=== PATIENT | female | born 1970 | race American Indian/Alaskan Native ===

== ENCOUNTER 2017-12-09 09:23 | Emergency (ER) | payer OTHER ==
[2017-12-09 09:30] VITALS: BP 120/79; PULSE 76; RESP 18; TEMP 98.6; O2SAT 100
--- NOTE | 2017-12-09 10:26 | C.PDOC ---
History Of Present Illness Michelle Heath is a 47 year old female, with a past medical history of chronic ear infections, who presents to the emergency department complaining of cough and subjective fever onset for x1 day. 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 Patient is also complaining of an ear discomfort. She took 3 drops of cortisporin otic solution and motrin last night. She denies any other medical complaints. PMD: None provided. Time Seen by Provider: 12/09/17 10:19 Chief Complaint (Nursing): Flu-like Symptoms History Per: Patient History/Exam Limitations: no limitations Onset/Duration Of Symptoms: Days (x1) Current Symptoms Are (Timing): Still Present Location Of Pain: Ear(s) Associated Symptoms: Fever (subjective), Cough, Other (ear discomfort) Past Medical History Reviewed: Historical Data, Nursing Documentation, Vital Signs Vital Signs: Last Vital Signs Temp 98.6 F 12/09/17 09:28 Pulse 76 12/09/17 09:28 Resp 18 12/09/17 09:28 BP 120/79 12/09/17 09:28 Pulse Ox 100 12/09/17 10:26 - Medical History Other PMH: chronic ear infections Surgical History: No Surg Hx Family History: States: Unknown Family Hx - Social History Hx Tobacco Use: No Hx Alcohol Use: No Hx Substance Use: No Review Of Systems Constitutional: Positive for: Fever (subjective) ENT: Positive for: Other (Ear discomfort) Respiratory: Positive for: Cough Physical Exam - Physical Exam Appears: No Acute Distress Skin: Normal Color, Warm, Dry Head: Atraumatic, Normacephalic Eye(s): bilateral: Normal Inspection, PERRL, EOMI Ear(s): Left: Normal (Ear wax in edges, no otitis externa), Bilateral: Normal Nose: Normal Oral Mucosa: Moist Throat: Normal Neck: Normal ROM Chest: Symmetrical Cardiovascular: Rhythm Regular, No Murmur Respiratory: Normal Breath Sounds, No Wheezing Gastrointestinal/Abdominal: Normal Exam, Soft, No Tenderness, No Guarding, No Rebound Back: Normal Inspection, No CVA Tenderness, No Vertebral Tenderness, No Paraspinal Tenderness Extremity: Normal ROM, No Deformity, No Swelling Neurological/Psych: Oriented x3 ED Course And Treatment O2 Sat by Pulse Oximetry: 100 (RA) Pulse Ox Interpretation: Normal Medical Decision Making Medical Decision Making: Initial Impression: Influenza Initial Plan: --Motrin tab 600 mg po --Tamiflu ap 75 mg PO --reevaluation high prob influenza- typical presentation start Tamiflu empirically, no testing refill asthma meds, clear lungs. Disposition Doctor Will See Patient In The: Office Counseled Patient/Family Regarding: Studies Performed, Diagnosis - Disposition Referrals: [facility] [Outside] Disposition: HOME/ ROUTINE Disposition Time: 10:26 Condition: GOOD Additional Instructions: Tamiflu 75 mg twice a day for 5 days- treatment for Influenza Continue Dayquil and Nyquil liberally for symptoms No work/school until afebrile for 24 hours. Prescriptions: Albuterol HFA [Ventolin HFA 90 mcg/actuation (8 g)] 2 puff IH Q4H PRN #1 puff PRN Reason: Cough Albuterol/Ipratropium [Duoneb 3 MG/3 Ml-0.5 MG/3 Ml 3 Ml] 6 ml IH Q4H PRN #100 neb PRN Reason: asthma Oseltamivir [Tamiflu] 75 mg PO BID #9 cap Instructions: Influenza (ED) Forms: [facility] (Korean), Work Excuse - Clinical Impression Clinical Impression: Influenza-like illness, Excess ear wax - Scribe Statement Matteo Hernandez Provider Attestation: All medical record entries made by the Scribe were at my direction and personally dictated by me. I have reviewed the chart and agree that the record accurately reflects my personal performance of the history, physical exam, medical decision making, and the department course for this patient. I have also personally directed, reviewed, and agree with the discharge instructions and disposition.
== END 2017-12-09 10:41 | disposition home or self-care (01) ==
LOC: C.ER 09:23
DX: J11.1 Influenza due to unidentified influenza virus with other respiratory manifestations (principal); H61.20 Impacted cerumen, unspecified ear